=== PATIENT | female | born 1965 | race Caucasian/White ===

== ENCOUNTER 2018-04-16 12:43 | Emergency (ER) | payer OTHER ==
[2018-04-16 12:48] VITALS: BP 134/93; PULSE 71; TEMP 98; BMI 33.3
[2018-04-16] MEDS ORDERED: SODIUM CHLORIDE 1,000 ML IV STA (13:26)
--- NOTE | 2018-04-16 13:35 | PDOC ---
History of Present Illness - General Chief Complaint: Lightheaded Stated Complaint: DIZZY Time Seen by Provider: 04/16/18 12:45 - History of Present Illness Initial Comments: 04/16/18 13:29 52 F with no PMH presents to ED with lightheadedness x 3 days. Pt states that she feels like she may be dehydrated, as she has not been drinking as much water as usual. Denies N/V/D. Denies abdominal pain. Denies CP/SOB/ palpitations. States that she feels lightheaded when she gets up and walks around but denies LOC. Denies room-spinning dizziness. No leg swelling. No dysuria. No vaginal bleeding. Past History - Past Medical History Allergies/Adverse Reactions: Allergies Allergy/AdvReac Type Severity Reaction Status Date / Time codeine Allergy Nausea Verified 04/16/18 12:44 COPD: No Hypercholesterolemia: Yes - Surgical History Abdominal Surgery: Yes (LAP BAND) Cholecystectomy: Yes - Immunization History Td Vaccination: (UNSURE) Immunization Up to Date: No - Suicide/Smoking/Psychosocial Hx Smoking Status: Yes Smoking History: Never smoked Years of Tobacco Use: 30 Number of Cigarettes Smoked Daily: 6 Cigars Per Day: 5 Hx Alcohol Use: Yes Drug/Substance Use Hx: Yes (MARIJUANA) Substance Use Type: None Hx Substance Use Treatment: No Review of Systems - Review of Systems Comments:: 04/16/18 13:33 GENERAL/CONSTITUTIONAL: No fever or chills. + lightheaded HEAD, EYES, EARS, NOSE AND THROAT: No change in vision. No ear pain or discharge. No sore throat. CARDIOVASCULAR: No chest pain, no shortness of breath, no loss of consciousness RESPIRATORY: No cough, wheezing, or hemoptysis. GASTROINTESTINAL: No nausea, vomiting, diarrhea or constipation. GENITOURINARY: No dysuria, frequency, or change in urination. MUSCULOSKELETAL: No joint or muscle swelling or pain. No neck or back pain. SKIN: No rash NEUROLOGIC: No vertigo, no change in strength/sensation. ENDOCRINE: No increased thirst. No abnormal weight change. HEMATOLOGIC/LYMPHATIC: No anemia, easy bleeding, or history of blood clots. ALLERGIC/IMMUNOLOGIC: No hives or skin allergy. *Physical Exam - Vital Signs Last Vital Signs Temp Pulse Resp BP Pulse Ox 98 F 71 16 134/93 98 04/16/18 12:44 04/16/18 12:44 04/16/18 12:44 04/16/18 12:44 04/16/18 12:44 - Physical Exam Comments: 04/16/18 13:33 "GENERAL: Awake, alert, and fully oriented, in no acute distress. HEAD: No signs of trauma EYES: PERRLA, EOMI, sclera anicteric, conjunctiva clear ENT: Auricles normal inspection, hearing grossly normal, nares patent, oropharynx clear without exudates. Moist mucosa NECK: Nontender, no stepoffs, Normal ROM, supple, no lymphadenopathy, JVD, or masses LUNGS: Breath sounds equal, clear to auscultation bilaterally. No wheezes, and no crackles HEART: Regular rate and rhythm, normal S1 and S2, no murmurs, rubs or gallops ABDOMEN: Soft, nontender, normoactive bowel sounds. No guarding, no rebound. No masses EXTREMITIES: Normal range of motion, no edema. No clubbing or cyanosis. No cords, erythema, or tenderness NEUROLOGICAL: Cranial nerves II through XII intact. 5/5 strength and sensation in all extremities, Normal speech, normal gait, normal cerebellar function SKIN: Warm, Dry, normal turgor, no rashes or lesions noted. Moderate Sedation - Procedure Monitoring Vital Signs: Procedure Monitoring Vital Signs Temperature 98 F 04/16/18 12:44 Pulse Rate 71 04/16/18 12:44 Respiratory Rate 16 04/16/18 12:44 Blood Pressure 134/93 04/16/18 12:44 O2 Sat by Pulse Oximetry (%) 98 04/16/18 12:44 Heart Score/ECG Review - ECG Impressions Comment:: 04/16/18 13:33 NSR, no MANNY/STDs, no TWIs, axis wnl, intervals wnl, rate 65 ED Treatment Course - LABORATORY CBC & Chemistry Diagram: 04/16/18 13:45 04/16/18 13:45 Medical Decision Making - Medical Decision Making 04/16/18 13:35 52 F with lightheadedness x 3 days. EKG with no arrhythmia or ischemia. Low suspicion for cardiac etiology. Will evaluate for UTI or metabolic derangement. Possible dehydration, though vitals are stable. - Labs, trop, UA - IVF 04/16/18 14:36 Labs wnl, UA negative Pt reassessed after fluids, now feels much better Pt is well appearing, with normal vitals. Clinically stable for DC at this time. I discussed the physical exam findings, ancillary test results and final diagnoses with the patient. I answered all of the patient's questions. The patient was satisfied with the care received and felt comfortable with the discharge plan and treatment plan. The patient agrees to follow up with the primary care physician within 24-72 hours. *DC/Admit/Observation/Transfer Diagnosis at time of Disposition: Lightheaded - Discharge Dispostion Disposition: HOME Condition at time of disposition: Stable - Referrals - Patient Instructions Printed Discharge Instructions: DI for Dizziness-Nonvertigo Additional Instructions: Drink plenty of fluids to stay hydrated. If you experience persistent lightheadedness, chest pain, shortness of breath, or any other concerning symptoms, return to the ER immediately. Otherwise follow up with your primary doctor within 1 week. - Post Discharge Activity - Attestations Physician Attestion: 04/16/18 14:39 I, Dr. Bryn García MD, attest that this document has been prepared under my direction and personally reviewed by me in its entirety. I further attest, that it accurately reflects all work, treatment, procedures and medical decision -making performed by me.
[2018-04-16 14:01] LABS: URINE APPEARANCE Clear; URINE BILIRUBIN Negative (NEGATIVE); URINE COLOR Yellow; URINE GLUCOSE (UA) Negative (NEGATIVE); URINE KETONE Negative (NEGATIVE); URINE LEUK ESTERASE TRACE (NEGATIVE); URINE NITRITE Negative (NEGATIVE); URINE PROTEIN Negative (NEGATIVE); URINE UROBILINOGEN 0.2 (0.2-1.0)
[2018-04-16 14:04] LABS: BASO % 0.5 % (0-2.0); EOS % 6.4 % (0-4.5); HEMATOCRIT 41.3 % (32.4-45.2); HEMOGLOBIN 13.4 GM/dl (10.7-15.3); LYMPH % 27.5 % (8-40); MCH 28.8 pg (25.7-33.7); MCHC 32.5 g/dl (32.0-36.0); MEAN CELL VOLUME 88.6 fl (80-96); MEAN PLT VOLUME 8.2 fl (7.5-11.1); MONO % 4.9 % (3.8-10.2); NEUT % 60.7 % (42.8-82.8); PLATELET COUNT 270 K/MM3 (134-434); RBC 4.66 M/mm3 (3.60-5.2); RDW 12.7 % (11.6-15.6); WHITE BLOOD COUNT 8.3 K/mm3 (4.0-10.8)
[2018-04-16 14:10] LABS: HCG,QUALITATIVE URINE Negative
[2018-04-16 14:12] LABS: ALBUMIN 3.8 g/dl (3.4-5.0); ALK PHOS 60 U/L (45-117); BILIRUBIN,TOTAL 0.5 mg/dl (0.2-1); BLOOD UREA NITROGEN 11 mg/dl (7-18); CREATININE 0.7 mg/dl (0.55-1.3); GLUCOSE,RANDOM 97 mg/dl (74-106); SGOT/AST 24 U/L (15-37); SGPT/ALT 27 U/L (13-61); TOT PROT 6.9 g/dl (6.4-8.2)
[2018-04-16 14:15] LABS: EPI CELLS FEW /HPF; URINE WBC 0-2 (0-5)
[2018-04-16 14:16] LABS: ANION GAP 10 MMOL/L (8-16); CALCIUM 9.2 mg/dl (8.5-10); CHLORIDE 103 mmol/L (98-107); CO2 23 mmol/L (21-32); SODIUM 136 mmol/L (136-145)
== END 2018-04-16 14:49 | disposition home or self-care (01) ==
LOC: FER 12:43
PROC: 3E0337Z Introduction of Electrolytic and Water Balance Substance into Peripheral Vein, Percutaneous Approach (ICD-10-PCS; principal; 2018-04-16)
DX: R42 Dizziness and giddiness (principal)
CPT/HCPCS: 36415; 80053; 81003; 81015; 82550; 84484; 84703; 85025; 96360; 99283-25; J7030

== ENCOUNTER 2019-04-13 07:49 | Emergency (ER) | payer OTHER ==
[2019-04-13 07:55] VITALS: TEMP 98; BMI 33.3
--- NOTE | 2019-04-13 08:29 | PDOC ---
History of Present Illness - General Chief Complaint: Laceration Stated Complaint: i cut my arm Time Seen by Provider: 04/13/19 08:06 - History of Present Illness Initial Comments: 04/13/19 08:39 Chief complaint: Laceration HPI: Patient cut her right forearm opening a box with a kitchen knife. Sustained small laceration. Minimal bleeding. Review of systems: Denies distal numbness tingling pain weakness or limited motion of the wrist hand or fingers. Denies pain at the site. 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 Family history negative Physical exam: Alert and oriented no acute distress cheerful and cooperative Afebrile, vital signs normal except for mildly elevated pressure Right forearm: 2 cm longitudinal laceration mid forearm. Involving only the epidermis. No deep penetration. Pulses full at the wrist. No sensory or motor deficits of the wrist hand or fingers. Impression: Superficial forearm laceration Plan: Suture repair. See note Past History - Past Medical History Allergies/Adverse Reactions: Allergies Allergy/AdvReac Type Severity Reaction Status Date / Time codeine Allergy Nausea Verified 04/13/19 07:50 Home Medications: Ambulatory Orders NK [No Known Home Medication] 04/13/19 COPD: No Hypercholesterolemia: Yes - Surgical History Abdominal Surgery: Yes (LAP BAND) Cholecystectomy: Yes - Immunization History Td Vaccination: (UNSURE) Immunization Up to Date: No - Psycho Social/Smoking Cessation Hx Smoking Status: Yes Smoking History: Former smoker Years of Tobacco Use: 30 Have you smoked in the past 12 months: No Number of Cigarettes Smoked Daily: 6 Cigars Per Day: 5 Information on smoking cessation initiated: No 'Breaking Loose' booklet given: 04/16/18 Hx Alcohol Use: Yes (rare) Drug/Substance Use Hx: No Substance Use Type: None Hx Substance Use Treatment: No *Physical Exam - Vital Signs Last Vital Signs Temp Pulse Resp BP Pulse Ox 98.0 F 78 18 148/106 H 98 04/13/19 07:50 04/13/19 07:50 04/13/19 07:50 04/13/19 07:50 04/13/19 07:50 Medical Decision Making - Medical Decision Making 04/13/19 08:42 Procedure note: Repair of laceration Skin was prepped with Betadine. Laceration was thoroughly scrubbed and irrigated with saline. Local anesthesia 1% lidocaine plain Hemostasis with pressure. Closed with interrupted 4-0 nylon skin sutures x3. Bacitracin. Band-Aid. Wound care discussed. Sutures out 7 to 10 days. Recheck if sign of infection. Tolerated well. Fully ambulatory and in no pain or other distress at discharge. Discharge - Discharge Information Problems reviewed: Yes Clinical Impression/Diagnosis: Laceration Condition: Improved Disposition: HOME - Admission No - Follow up/Referral Referrals: Mary Hess MD [Primary Care Provider] - - Patient Discharge Instructions Patient Printed Discharge Instructions: DI for Laceration Repair Additional Instructions: Keep clean and dry. Recheck immediately if signs of infection. Otherwise suture removal 7 to 10 days. Change bandage daily and apply antibiotic ointment. - Post Discharge Activity Work/Back to School Note: Back to Work
[2019-04-13] MEDS ORDERED: DIPHTH,PERTUSS(ACELL),TET 0.5 ML DISP.SYRIN IM ONE ×2 (08:31→08:34)
[2019-04-13 08:41] VITALS: BP 147/92; PULSE 89
== END 2019-04-13 08:40 | disposition home or self-care (01) ==
LOC: FER 07:49
PROC: 0HQDXZZ Repair Right Lower Arm Skin, External Approach (ICD-10-PCS; principal; 2019-04-13)
DX: S51.811A Laceration without foreign body of right forearm, initial encounter (principal); W26.0XXA Contact with knife, initial encounter; Y93.89 Activity, other specified; Y92.410 Unspecified street and highway as the place of occurrence of the external cause; Z88.6 Allergy status to analgesic agent
CPT/HCPCS: 12001-25; 90715; 99282-25

== ENCOUNTER 2022-04-07 09:02 | Emergency (ER) | payer OTHER ==
[2022-04-07 09:10] VITALS: BP 139/90; PULSE 62; RESP 18; TEMP 98; BMI 34.1
[2022-04-07] MEDS ORDERED: LIDOCAINE 5% TOPICAL PATCH TP ONE (09:21)
[2022-04-07] MEDS ORDERED: KETOROLAC TROMETHAMINE 60 MG/2 ML VIAL IM ONE (09:21)
[2022-04-07] MEDS ORDERED: KETOROLAC TROMETHAMINE 60 MG/2 ML VIAL ONE (09:23)
[2022-04-07] MEDS ORDERED: LIDOCAINE 5% TOPICAL PATCH ONE (09:23)
[2022-04-07] MEDS ORDERED: LIDOCAINE PATCH REMOVAL MC SCH (22:00)
== END 2022-04-07 12:05 | disposition home or self-care (01) ==
LOC: FER 09:02
PROC: 3E023GC Introduction of Other Therapeutic Substance into Muscle, Percutaneous Approach (ICD-10-PCS; principal; 2022-04-07)
DX: R07.81 Pleurodynia (principal)
CPT/HCPCS: 71111-TC-FY; 99284-25